=== PATIENT | male | born 1960 | race Caucasian/White ===

== ENCOUNTER 2022-03-18 21:44 | Emergency (ER) | payer BC ==
[2022-03-18] MEDS ORDERED: Lidocaine 1% 5 ML VIAL INJECT ONE (21:48)
[2022-03-18] MEDS ORDERED: Bacitracin Oint 1 GM U/D Packet TOP ONE (21:49)
[2022-03-18] MEDS ORDERED: Diphtheria,Pertussis(Acell),Tetanus Vaccine 0.5 ML Syringe IM ONE (22:38)
== END 2022-03-18 23:31 | disposition home or self-care (01) ==
LOC: JP.ED 21:44
DX: S61.412A Laceration without foreign body of left hand, initial encounter (principal); Z23 Encounter for immunization; W26.8XXA Contact with other sharp object(s), not elsewhere classified, initial encounter
CPT/HCPCS: 12002; 90471; 90715; 99281; 99282-25